=== PATIENT | male | born 1975 | race Caucasian/White ===

== ENCOUNTER → 2023-11-22 06:19 | Outpatient (REF) | payer BC, SELFPAY ==
[2023-11-22 07:24] LABS: % Basophils 0.5 % (0-2); % Eosinophils 3.1 % (0-6); % Immature Granulocytes 0.3 % (0-0.5); % Monocytes 14.8 % (1.7-9.3); % Neutrophils 52.3 % (42.2-75.2); Absolute Eosinophils 0.2 10^3/uL (0-0.7); Absolute Lymphocytes 1.7 10^3/uL (1.2-3.4); Absolute Monocytes 0.9 10^3/uL (0.1-0.6); Hematocrit 42.5 % (39.0-52.0); Hemoglobin 15.6 g/dL (13.0-18.0); Mean Corp Hgb Conc. 36.7 g/dL (33.0-37.0); Mean Corpuscular Hgb 32.2 pg (27.0-31.0); Mean Corpuscular Volume 87.6 fL (80.0-94.0); Mean Platelet Volume 10.3 fL (7.4-10.4); Nucleated Red Blood Cells % 0 % (-); Platelet Count 200 10^3/uL (130-400); Red Blood Cell Count 4.85 10^6/uL (4.70-6.10); Red Cell Dist. Width 12.9 % (11.5-14.5); White Blood Cell Count 5.8 10^3/uL (4.8-10.8)
[2023-11-22 07:43] LABS: Erythrocyte Sed Rate 3 mm/hour (0-20)
[2023-11-22 08:01] LABS: ALT (SGPT) 59 U/L (0-50); AST (SGOT) 36 U/L (17-59); Albumin 4.5 g/dl (3.5-5.0); Alkaline Phosphatase 38 U/L (38-126); Blood Urea Nitrogen 34 mg/dl (9-20); Calcium 9.8 mg/dl (8.4-10.2); Carbon Dioxide 25 mmol/L (22-30); Chloride 100 mmol/L (98-107); Glucose 98 mg/dl (70-99); HDL Cholesterol 39 mg/dl; LDL Cholesterol, Calculated 101 mg/dl; Sodium 140 mmol/L (135-145); Total Bilirubin 0.7 mg/dl (0.2-1.3); Total Cholesterol 167 mg/dl (50-199); Total Protein 6.8 g/dl (6.3-8.2); Triglyceride 136 mg/dl (10-149); Very Low Density Lipoprotein 27 mg/dl (0-30); eGFR > 60.00
[2023-11-22 08:31] LABS: TSH 1.62 uIU/ml (0.47-4.68)
[2023-11-22 11:02] LABS: Glycohemoglobin (HgbA1c) 5.2 % (4.0-5.6)
== END ==
LOC: REG 06:19
PROVIDERS: REFERRING PHYSICIAN Specialist
DX: I10 Essential (primary) hypertension (principal); E66.9 Obesity, unspecified; I15.8 Other secondary hypertension; R73.01 Impaired fasting glucose; R80.9 Proteinuria, unspecified
CPT/HCPCS: 36415; 80053; 80061; 83036; 84443; 85025; 85652

== ENCOUNTER → 2024-03-07 14:33 | Outpatient (REF) | payer BC, SELFPAY | LOC: RCS 14:33 | PROVIDERS: ATTENDING PHYSICIAN Internal Medicine; FAMILY PHYSICIAN Student in an Organized Health Care Education/Training Program | DX: I42.1 Obstructive hypertrophic cardiomyopathy (principal); I10 Essential (primary) hypertension | CPT/HCPCS: 93306 ==

== ENCOUNTER 2024-05-04 08:41 | Day surgery (SDC) | payer BC, SELFPAY ==
[2024-04-28 09:26] VITALS: BMI 30.6
[2024-04-28 09:53] LABS: % Basophils 0.6 % (0-2); % Eosinophils 1.5 % (0-6); % Immature Granulocytes 0.4 % (0-0.5); % Monocytes 12.3 % (1.7-9.3); % Neutrophils 63.2 % (42.2-75.2); Absolute Eosinophils 0.1 10^3/uL (0-0.7); Absolute Lymphocytes 1.2 10^3/uL (1.2-3.4); Absolute Monocytes 0.7 10^3/uL (0.1-0.6); Absolute Neutrophils 3.4 10^3/uL (1.4-6.5); Hematocrit 42.3 % (39.0-52.0); Hemoglobin 15.3 g/dL (13.0-18.0); Mean Corp Hgb Conc. 36.2 g/dL (33.0-37.0); Mean Corpuscular Volume 88.5 fL (80.0-94.0); Mean Platelet Volume 9.9 fL (7.4-10.4); Nucleated Red Blood Cells % 0 % (-); Platelet Count 201 10^3/uL (130-400); Red Blood Cell Count 4.78 10^6/uL (4.70-6.10); Red Cell Dist. Width 12.8 % (11.5-14.5); White Blood Cell Count 5.4 10^3/uL (4.8-10.8)
[2024-04-28 10:08] LABS: ALT (SGPT) 69 U/L (0-50); AST (SGOT) 33 U/L (17-59); Albumin 4.5 g/dl (3.5-5.0); Alkaline Phosphatase 52 U/L (38-126); Blood Urea Nitrogen 27 mg/dl (9-20); Calcium 9.8 mg/dl (8.4-10.2); Carbon Dioxide 31 mmol/L (22-30); Chloride 100 mmol/L (98-107); Estimated Creatinine Clearance 100 ml/min; Glucose 127 mg/dl (70-99); Potassium 3.9 mmol/L (3.5-5.1); Sodium 138 mmol/L (135-145); Total Bilirubin 1.2 mg/dl (0.2-1.3); Total Protein 6.8 g/dl (6.3-8.2); eGFR > 60.00
[2024-04-30 05:10] LABS: Lipoprotein a (Lp a) <6 mg/dL (<=29)
[2024-05-04] VITALS (12 sets, daily range): BP systolic 98–146; BP diastolic 57–93; BMI 28.7
[2024-05-04] MEDS: NSS 313 ML IV (09:49)
--- NOTE | 2024-05-04 18:02 | ITS.CL.PN ---
[facility] - Procedure Note
Procedure
Procedure Note:
CARDIAC CATHETERIZATION REPORT
Date of Procedure: 05/04/2024
Referring: Dr. Omkar Hodge MD
Indication: severely elevated coronary artery calcium score
PROCEDURE(S)
1. left heart catheterization
2. coronary angiography
ACCESS: 6F right radial artery (closure: radial band)
CATHETERS
1. 6F JR4
2. 6F JL4
MODERATE SEDATION: 25 minutes of moderate sedation was utilized. An independent medical librarian was present to assist with and help manage the patient's level of consciousness and physiologic status.
ULTRASOUND GUIDED VASCULAR ACCESS (right radial artery): Ultrasound was utilized for vascular access. The vessel was visualized under ultrasound and noted to be patent. An image of the vessel was stored permanently in the patient's medical record.
Under direct ultrasound guidance, vascular access was obtained using a modified Seldinger technique and a 6 Setswana sheath was placed.
HEMODYNAMIC DATA
LV 113/8 (EDP 12) mmHg
AO 115/77 (mean 95) mmHg
CORONARY ANGIOGRAPHY
Dominance: Right
LM: Large with mild proximal narrowing.
LAD: Large vessel giving rise to a moderate caliber D1, large branching D2, and moderate caliber D3. There is a focal 40% stenosis between D2 and D3 and otherwise mild disease.
LCx: Large caliber vessel giving rise to 2 small marginal branches. There is moderate diffuse disease.
RCA: Very large and tortuous vessel giving rise to a medium caliber RPDA, medium caliber RPL1, medium caliber RPL2, and very large RPL3. There is a focal 40% stenosis proximally and otherwise diffuse mild disease.
RADIATION: dose 649.06 mGy; DAP 36.2292 Gy*cm2; fluoroscopy time 3.8 min
CONCLUSIONS
1. Nonobstructive coronary artery disease with unusually large and tortuous vessels and heavy extraluminal calcification.
2. Normal left ventricular filling pressure and no aortic stenosis
RECOMMENDATIONS: Aggressive secondary prevention of coronary artery disease
Copy to: Dr. Omkar Hodge MD (hairspring vibrator); Dr. Obed Jama MD (PCP)
Signed: Elver Read MD, PhD
== END 2024-05-04 13:45 | disposition home or self-care (01) ==
LOC: CATH 08:41
PROVIDERS: ATTENDING PHYSICIAN Internal Medicine Cardiovascular Disease; FAMILY PHYSICIAN Student in an Organized Health Care Education/Training Program; OTHER PHYSICIAN Internal Medicine
DX: I25.10 Atherosclerotic heart disease of native coronary artery without angina pectoris (principal); E78.5 Hyperlipidemia, unspecified; I11.0 Hypertensive heart disease with heart failure; Z87.891 Personal history of nicotine dependence; E66.9 Obesity, unspecified; I42.1 Obstructive hypertrophic cardiomyopathy; I50.32 Chronic diastolic (congestive) heart failure; Z82.49 Family history of ischemic heart disease and other diseases of the circulatory system
CPT/HCPCS: 99152; 99153; 36415; 76937; 80053; 83695; 85025; 93005; 93458; C1894; Q9967

== ENCOUNTER → 2024-06-29 06:35 | Outpatient (REF) | payer BC, SELFPAY ==
[2024-06-29 07:48] LABS: HDL Cholesterol 44 mg/dl; LDL Cholesterol, Calculated 113 mg/dl; Total Cholesterol 166 mg/dl (50-199); Triglyceride 49 mg/dl (10-149); Very Low Density Lipoprotein 9 mg/dl (0-30)
== END ==
LOC: REG 06:35
PROVIDERS: ATTENDING PHYSICIAN Nurse Practitioner; FAMILY PHYSICIAN Student in an Organized Health Care Education/Training Program
DX: E78.2 Mixed hyperlipidemia (principal)
CPT/HCPCS: 36415; 80061

== ENCOUNTER → 2024-09-28 06:34 | Outpatient (REF) | payer BC, SELFPAY ==
[2024-09-28 07:25] LABS: Hematocrit 41.1 % (39.0-52.0); Hemoglobin 14.5 g/dL (13.0-18.0); Mean Corp Hgb Conc. 35.3 g/dL (33.0-37.0); Mean Corpuscular Volume 88.0 fL (80.0-94.0); Nucleated Red Blood Cells % 0 % (-); Platelet Count 180 10^3/uL (130-400); Red Cell Dist. Width 12.8 % (11.5-14.5)
[2024-09-28 07:58] LABS: ALT (SGPT) 83 U/L (0-50); AST (SGOT) 43 U/L (17-59); Albumin 4.2 g/dl (3.5-5.0); Alkaline Phosphatase 65 U/L (38-126); Blood Urea Nitrogen 22 mg/dl (9-20); Calcium 9.4 mg/dl (8.4-10.2); Carbon Dioxide 29 mmol/L (22-30); Chloride 103 mmol/L (98-107); Glucose 93 mg/dl (70-99); HDL Cholesterol 50 mg/dl; LDL Cholesterol, Calculated 86 mg/dl; Potassium 3.9 mmol/L (3.5-5.1); Sodium 135 mmol/L (135-145); Total Protein 6.3 g/dl (6.3-8.2); Very Low Density Lipoprotein 6 mg/dl (0-30); eGFR > 60.00
[2024-09-28 08:14] LABS: Free T3 3.59 pg/ml (2.77-5.27)
[2024-09-28 08:28] LABS: Cortisol, Random 10.2 ug/dl; TSH 1.55 uIU/ml (0.47-4.68)
[2024-09-28 08:47] LABS: Vitamin B12 469 pg/ml (239-931)
[2024-09-29 21:34] LABS: Thyroglobulin 6.7 ng/mL (1.3-31.8); Thyroglobulin Antibodies <1.5 IU/mL (0.0-4.0)
== END ==
LOC: REG 06:34
PROVIDERS: ATTENDING PHYSICIAN Physical Medicine & Rehabilitation; FAMILY PHYSICIAN Internal Medicine
DX: R73.09 Other abnormal glucose (principal); R53.83 Other fatigue; E78.5 Hyperlipidemia, unspecified; I10 Essential (primary) hypertension; D51.3 Other dietary vitamin B12 deficiency anemia; R94.5 Abnormal results of liver function studies
CPT/HCPCS: 36415; 80053; 80061; 82533; 82607; 82627; 83525; 84244; 84432; 84439; 84443; 84481; 85025; 86376; 86800